=== PATIENT | female | born 1990 | race American Indian/Alaskan Native ===

== ENCOUNTER 2016-09-27 12:58 | Inpatient (IN) | payer MEDICAID ==
[2016-09-27] MEDS ORDERED: ePHEDrine SULFATE IV PRN (14:22)
[2016-09-27] MEDS ORDERED: XYLOCAINE 2% INFILTRATI ONE (14:22)
[2016-09-27] MEDS ORDERED: BRETHINE IVP PRN (14:22)
[2016-09-27] MEDS ORDERED: MINERAL OIL PO PRN (14:22)
[2016-09-27] MEDS ORDERED: BRETHINE SUB-Q PRN (14:22)
--- NOTE | 2016-09-27 14:42 | History and Physical Report ---
History of Present Illness Date of examination: 09/27/16 Date of admission: 09/27/16 13:49 History of present illness: 26 yo LMP EDC 10/12/16 @ 37.6 weeks gestation, presented to triage 7cm. Currently 9100/0 station with AROM-clear fluid at 1430. First trimester entry into care at 6 weeks. course complicated by anemia with iron BID and hemorrhage of anterior placenta on 05/05/16 U/S. Past History Past Medical History: other (ectopic) Past Surgical History: other (ectopic) Social history: no significant social history, single - Obstetrical History Expected Date of Delivery: 10/12/16 Actual Gestation: 37 Week(s) 6 Day(s) : 3 Para: 1 Hx # Term Pregnancies: 1 Number of Living Children: 1 Medications and Allergies Allergies Allergy/AdvReac Type Severity Reaction Status Date / Time hydrocodone [Hydrocodone] Allergy Hallucinati Verified 03/17/13 00:14 on latex Allergy Rash Verified 03/17/13 00:14 Home Medications Medication Instructions Recorded Confirmed Last Taken Type Acetaminophen/Codeine [Tylenol #3] 1 tab PO Q6H PRN #20 tab 03/17/13 10/26/14 Unknown Rx Promethazine [Phenergan] 25 mg PO Q6H PRN #20 tablet 03/17/13 10/26/14 Unknown Rx Ibuprofen [Motrin 600 MG tab] 600 mg PO Q6H PRN #30 tablet 10/27/14 Unknown Rx Active Meds: Active Medications Ephedrine Sulfate (Ephedrine Sulfate) 10 mg IV Q2M PRN PRN Reason: Hypotension Stop: 09/27/16 14:27 Lactated Ringer's (Lactated Ringers) 1,000 mls @ 125 mls/hr IV DIRECT JEAN-PAUL Oxytocin/Sodium Chloride (Pitocin/Ns 20 Unit/1000ml Drip) 20 units in 1,000 mls @ 125 mls/hr IV DIRECT JEAN-PAUL Oxytocin/Sodium Chloride (Pitocin/Ns 30 Unit/500ml) 30 units in 500 mls @ 1 mls /hr IV TITR JEAN-PAUL; 1 MILLIUNITS/MIN PRN Reason: Protocol Lidocaine (Xylocaine 2%) 20 ml INFILTRATI ONCE ONE Stop: 09/27/16 14:23 Mineral Oil (Mineral Oil) 30 ml PO QHS PRN PRN Reason: Constipation Terbutaline Sulfate (Brethine) 0.25 mg SUB-Q ONCE PRN PRN Reason: Hyperstimulation/Hypertonicity Stop: 09/27/16 14:23 Terbutaline Sulfate (Brethine) 0.25 mg IVP ONCE PRN PRN Reason: Hyperstimulation/Hypertonicity Stop: 09/27/16 14:23 Review of Systems All systems: negative Genitourinary: deferred, normal appearance, contractions, no vaginal bleeding, no vaginal discharge, no genital sores - Vital Signs Vital signs: Vital Signs Pulse BP 88 126/79 09/27/16 13:35 09/27/16 13:35 Temp Pulse Resp BP Pulse Ox 105 H 126/79 99 09/27/16 14:27 09/27/16 13:35 09/27/16 14:27 - Physical Exam Breasts: Positive: deferred Cardiovascular: Regular rate Lungs: Positive: Normal air movement Abdomen: Positive: normal appearance - Obstetrical FHR: category 1 Uterine Contraction Monitor Mode: External Cervical Dilatation: 9 Cervical Effacement Percentage: 100 station: -1 Uterine Contraction Frequency (min): 2 Uterine Contraction Duration: 60-70 Uterine Contraction Pattern: Regular Uterine Tone Measurement Phase: Resting Uterine Contraction Intensity: Strong/Firm Results All other labs normal. Assessment and Plan A: IUP at term Transitional Labor P: AROM-clear fluid Anticipate
--- NOTE | 2016-09-27 14:47 | Procedure Note ---
OB Delivery Note - Delivery Date of Delivery: 09/27/16 (6-1oz male 1506 Male ) Surgeon: ALBERTA CORREA Estimated blood loss: <100cc - Vaginal Delivery presentation: vertex Delivery position: OA Delivery induction: none Delivery augmentation: rupture of membranes Delivery monitor: external FHT, external uterine Route of delivery: Delivery placenta: spontaneous Delivery cord: 3 umbilical vessels Episiotomy: none Delivery laceration: vaginal side wall (Not bleeding, not repaired) Anesthesia: none - A at 1 minute: 8 at 5 minutes: 9 Gender: Male (progressed rapidly to of male infant. Spont. placenta , bleeding scant. Pitocin infusing. sidewall laceration, not bleeding, not repaired. EBL 100cc)
[2016-09-27] MEDS ORDERED: LACTATED RINGERS 1,000 ML IV SCH (15:00)
[2016-09-27] MEDS ORDERED: PITOCin/NS 30 UNIT/500ML 30 UNITS/500 ML BAG IV SCH (15:00)
[2016-09-27] MEDS ORDERED: PITOCin/NS 20 UNIT/1000ML DRIP 20 UNITS/1,000 ML BAG IV SCH (15:00)
[2016-09-27] MEDS ORDERED: MILK OF MAGNESIA PO PRN (15:25)
[2016-09-27] MEDS ORDERED: TUCKS PAD TP PRN (15:25)
[2016-09-27] MEDS ORDERED: DULCOLAX PR PRN (15:25)
[2016-09-27] MEDS ORDERED: PHENERGAN PR PRN (15:25)
[2016-09-27] MEDS ORDERED: ZOFRAN IV PRN (15:25)
[2016-09-27] MEDS ORDERED: LANSINOH TP PRN (15:25)
[2016-09-27] MEDS ORDERED: DERMOPLAST TP PRN (15:25)
[2016-09-27] MEDS ORDERED: TYLENOL PO PRN (15:25)
[2016-09-27] MEDS ORDERED: BENADRYL PO PRN (15:25)
[2016-09-27] MEDS ORDERED: SODIUM CHLORIDE FLUSH SYRINGE 10 ML IV NR (16:00)
[2016-09-27 16:22] LABS: Hemoglobin 9.6 gm/dl (10.1-14.3); Mean Corpuscular HGB Conc 32 % (30-34); Mean Corpuscular Hemoglobin 26 pg (28-32); Mean Corpuscular Volume 82 fl (79-97); Platelet Count 315 K/mm3 (140-440); Red Blood Count 3.67 M/mm3 (3.65-5.03); Red Cell Distribution Width 14.6 % (13.2-15.2); White Blood Count 9.7 K/mm3 (4.5-11.0)
[2016-09-27] MEDS: MOTRIN PO SCH (22:25)
[2016-09-28 04:01] LABS: Hematocrit 26.1 % (30.3-42.9); Hemoglobin 8.4 gm/dl (10.1-14.3)
[2016-09-28] MEDS: MOTRIN PO SCH ×2 (04:05→12:00)
--- NOTE | 2016-09-28 08:03 | Progress Note ---
Assessment and Plan - Patient Problems (1) Active labor at term Current Visit: No Status: Acute Plan to address problem: doing well routine Subjective - Subjective Date of service: 09/28/16 Interval history: Patient without complaints. Breast feeding well. Pain well controlled Patient reports: appetite normal, voiding normally, pain well controlled : doing well, nursing well Objective - Vital Signs Latest vital signs: Vital Signs Temp Pulse Pulse Resp BP BP Pulse Ox 09/28/16 00:05 98.3 F 95 H 20 110/69 09/27/16 20:18 98.5 F 88 20 116/73 09/27/16 17:30 98.1 F 82 18 117/75 09/27/16 16:25 77 120/76 09/27/16 16:10 75 118/75 09/27/16 15:56 84 128/77 09/27/16 15:40 90 120/74 09/27/16 15:26 87 124/75 09/27/16 15:02 115 H 89 09/27/16 14:57 103 H 99 09/27/16 14:56 85 85 09/27/16 14:52 98 H 98 09/27/16 14:51 82 88 09/27/16 14:47 102 H 99 09/27/16 14:42 99 H 99 09/27/16 14:37 104 H 98 09/27/16 14:32 105 H 99 09/27/16 14:27 105 H 99 09/27/16 14:22 98 H 98 09/27/16 14:17 101 H 99 09/27/16 14:12 102 H 99 09/27/16 14:07 98 H 100 09/27/16 14:03 106 H 91 09/27/16 14:02 93 H 95 09/27/16 13:35 88 126/79 Intake and Output 09/27/16 09/28/16 09/28/16 22:59 06:59 14:59 Intake Total 240 360 Balance 240 360 Intake: Oral 240 Intake, Free Water 360 Other: Total, Intake Amount 240 # Voids Void 4 Estimated Blood Loss 150 - Exam Abdomen: Present: normal appearance Uterus: Present: normal - Labs Labs: Abnormal lab results 09/27/16 09/27/16 09/28/16 Range/Units 16:00 16:00 03:33 Hgb 9.6 L 8.4 L (10.1-14.3) gm/dl Hct 30.0 L 26.1 L (30.3-42.9) % MCH 26 L (28-32) pg Crossmatch See Detail
--- NOTE | 2016-09-28 08:04 | Discharge Summary ---
Providers - Providers Date of Admission: 09/27/16 13:49 Date of discharge: 09/28/16 Attending physician: LONG CERVANTES MD Primary care physician: LONG CERVANTES MD Hospitalization Reason for admission: active labor Delivery: Discharge diagnosis: IUP at term delivered [place] baby: male Hospital course: Admitted in active labor. . Routine Condition at discharge: Good Disposition: DISCHARGED TO HOME OR SELFCARE - Discharge Diagnoses (1) Active labor at term Status: Acute Plan - Discharge Medications Prescriptions: Ferrous Sulfate [Feosol 325 MG tab] 325 mg PO BID #60 tablet Ibuprofen [Motrin] 800 mg PO Q8HR PRN #60 tablet PRN Reason: Pain - Provider Discharge Summary Activity: no sex for 6 weeks, no heavy lifting 4 weeks, no strenuous exercise Diet: routine Instructions: routine Additional instructions: [] Smoking cessation referral if applicable(refer to patient education folder for contact #) [] Refer to [facility]'s [facility] Booklet Call your doctor immediately for: * Fever > 100.5 * Heavy vaginal bleeding ( >1 pad per hour) * Severe persistent headache * Shortness of breath * Reddened, hot, painful area to leg or breast * Drainage or odor from incision. * Keep incision clean and dry at all times and follow doctor's instructions regarding bathing/showering visit in 4 weeks - Follow up plan
[2016-09-28] MEDS ORDERED: PRENATAL VITAMIN PO SCH (10:00)
[2016-09-28] MEDS ORDERED: M-M-R II VACCINE SUB-Q ONE (15:25)
[2016-09-28 18:23] VITALS: BP 100/74
== END 2016-09-28 18:30 | disposition home or self-care (01) | DRG 775 ==
LOC: TRG 12:58 → LD 13:49 → OB 17:30
PROVIDERS: ADMIT Obstetrics & Gynecology; ATTEND Obstetrics & Gynecology
PROC: 10E0XZZ Delivery of Products of Conception, External Approach (ICD-10-PCS; principal; 2016-09-27)
PROC: 10907ZC Drainage of Amniotic Fluid, Therapeutic from Products of Conception, Via Natural or Artificial Opening (ICD-10-PCS; 2016-09-27)
DX: O99.02 Anemia complicating childbirth (principal); D64.9 Anemia, unspecified; O71.4 Obstetric high vaginal laceration alone; Z3A.37 37 weeks gestation of pregnancy; Z37.0 Single live birth; Z88.8 Allergy status to other drugs, medicaments and biological substances; Z91.040 Latex allergy status; O46.8X9 Other antepartum hemorrhage, unspecified trimester
CPT/HCPCS: 36415; 85014; 85018; 85027; 86850; 86900; 86901; 86922; J2590

== ENCOUNTER 2018-08-18 08:36 | Inpatient (IN) | payer MEDICAID ==
[2018-08-18] MEDS ORDERED: PITOCin/NS 30 UNIT/500ML 30 UNITS/500 ML BAG IV SCH ×2 (10:04→15:00)
[2018-08-18] MEDS ORDERED: SUBLIMAZE IV ONE (10:05)
[2018-08-18] MEDS ORDERED: LACTATED RINGERS 1,000 ML IV SCH ×2 (11:00→15:00)
[2018-08-18 11:24] LABS: Basophils % (Auto) 0.3 % (0.0-1.8); Eosinophils # (Auto) 0.1 K/mm3 (0.0-0.4); Eosinophils % (Auto) 1.6 % (0.0-4.3); Hematocrit 34.3 % (30.3-42.9); Hemoglobin 11.1 gm/dl (10.1-14.3); Lymphocytes # (Auto) 1.4 K/mm3 (1.2-5.4); Lymphocytes % (Auto) 24.8 % (13.4-35.0); Mean Corpuscular HGB Conc 32 % (30-34); Mean Corpuscular Volume 83 fl (79-97); Monocytes # (Auto) 0.5 K/mm3 (0.0-0.8); Monocytes % (Auto) 9.2 % (0.0-7.3); Platelet Count 308 K/mm3 (140-440); Red Blood Count 4.16 M/mm3 (3.65-5.03); Red Cell Distribution Width 14.2 % (13.2-15.2)
--- NOTE | 2018-08-18 14:17 | History and Physical Report ---
History of Present Illness Date of examination: 08/18/18 Date of admission: 08/18/18 12:44 Chief complaint: leakage of fluid History of present illness: 28y/o @ 38+0 weeks presents with gross rupture of membranes and irregular uterine contractions. Patient was 3cm at presentation. Patient initiated care @ 10 weeks. course is uncomplicated. GBS negative. Past History Past Medical History: no pertinent history Past Surgical History: other (left salpingectomy) Social history: single - Obstetrical History Expected Date of Delivery: 09/01/18 Actual Gestation: 38 Week(s) 0 Day(s) : 4 Para: 2 Hx # Term Pregnancies: 2 Number of Pregnancies: 0 Spontaneous Abortions: 1 Induced : 0 Number of Living Children: 2 Medications and Allergies Allergies Allergy/AdvReac Type Severity Reaction Status Date / Time hydrocodone [Hydrocodone] Allergy Hallucinati Verified 03/17/13 00:14 on latex Allergy Rash Verified 03/17/13 00:14 Home Medications Medication Instructions Recorded Confirmed Last Taken Type Acetaminophen/Codeine [Tylenol #3] 1 tab PO Q6H PRN #20 tab 03/17/13 09/28/16 Unknown Rx Promethazine [Phenergan] 25 mg PO Q6H PRN #20 tablet 03/17/13 09/28/16 Unknown Rx Ibuprofen [Motrin 600 MG tab] 600 mg PO Q6H PRN #30 tablet 10/27/14 09/28/16 Unknown Rx Ferrous Sulfate [Feosol 325 MG tab] 325 mg PO BID #60 tablet 09/28/16 Unknown Rx Ibuprofen [Motrin] 800 mg PO Q8HR PRN #60 tablet 09/28/16 Unknown Rx Active Meds: Active Medications Lactated Ringer's (Lactated Ringers) 1,000 mls @ 125 mls/hr IV DIRECT JEAN-PAUL Oxytocin/Sodium Chloride (Pitocin/Ns 30 Unit/500ml) 30 units in 500 mls @ 4 mls/hr IV TITR JEAN-PAUL; Protocol Review of Systems All systems: negative Genitourinary: leakage of fluid, contractions - Vital Signs Vital signs: Vital Signs Pulse BP 96 H 108/71 08/18/18 09:24 08/18/18 09:24 Temp Pulse Resp BP Pulse Ox 98.4 F 100 H 14 112/77 98 08/18/18 13:43 08/18/18 14:12 08/18/18 13:43 08/18/18 13:43 08/18/18 14:12 - Physical Exam Breasts: Positive: deferred Cardiovascular: Regular rate Lungs: Positive: Clear to auscultation Abdomen: Positive: normal appearance Results Result Diagrams: 08/18/18 10:38 Abnormal lab results 08/18/18 08/18/18 Range/Units 10:38 10:38 MCH 27 L (28-32) pg [place] % (Auto) 9.2 H (0.0-7.3) % Crossmatch See Detail All other labs normal. Assessment and Plan - Patient Problems (1) Spontaneous rupture of membranes Current Visit: Yes Status: Acute Plan to address problem: admit to L&D and initiate pitocin (2) Active labor at term Current Visit: No Status: Acute
[2018-08-18] MEDS ORDERED: SUBLIMAZE ONE (14:27)
[2018-08-18] MEDS ORDERED: BRETHINE SUB-Q PRN (14:30)
[2018-08-18] MEDS ORDERED: XYLOCAINE 2% INFILTRATI ONE (14:30)
[2018-08-18] MEDS ORDERED: BRETHINE IVP PRN (14:30)
[2018-08-18] MEDS ORDERED: STADOL IV PRN (14:30)
[2018-08-18] MEDS ORDERED: MINERAL OIL PO PRN (14:30)
[2018-08-18] MEDS ORDERED: PITOCin/NS 20 UNIT/1000ML DRIP 20 UNITS/1,000 ML BAG IV SCH (15:00)
[2018-08-18 15:13] LABS: Hematocrit 32.4 % (30.3-42.9); Hemoglobin 10.6 gm/dl (10.1-14.3); Mean Corpuscular HGB Conc 33 % (30-34); Mean Corpuscular Volume 82 fl (79-97); Platelet Count 303 K/mm3 (140-440); Red Blood Count 3.95 M/mm3 (3.65-5.03); Red Cell Distribution Width 14.1 % (13.2-15.2)
[2018-08-18] MEDS ORDERED: NARCAN 2 MG/2 ML IV PRN (15:15)
--- NOTE | 2018-08-18 15:17 | Anesthesia Day of Surgery ---
Anesthesia Day of Surgery - Day of Surgery Patient Examined: Yes Patient H&P Reviewed: Yes Patient is NPO: Yes Beta Blockers: No Cardiac Clearance: No Pulmonary Clearance: No Andres's Test: N/A
--- NOTE | 2018-08-18 15:17 | Anesthesia Consultation ---
Anesthesia Consult and Med Hx - Airway Anesthetic Teeth Evaluation: Good ROM Head & Neck: Adequate Mental/Hyoid Distance: Adequate Mallampati Class: Class I Intubation Access Assessment: Good - Pulmonary Exam CTA: Yes - Cardiac Exam Cardiac Exam: RRR - Pre-Operative Health Status ASA Pre-Surgery Classification: ASA2 Proposed Anesthetic Plan: Epidural - Pulmonary Hx Smoking: No Hx Asthma: No COPD: No Hx Pneumonia: No - Cardiovascular System Hx Hypertension: No - Central Nervous System Hx Seizures: No Hx Psychiatric Problems: No - Endocrine Hx Renal Disease: No Hx End Stage Renal Disease: No Hx Hypothyroidism: No Hx Hyperthyroidism: No - Hematic Hx Anemia: No Hx Sickle Cell Disease: No - Other Systems Hx Alcohol Use: No
[2018-08-18] MEDS ORDERED: MARCAINE 0.25% INFILTRATI ONE (15:21)
[2018-08-18] MEDS ORDERED: LIDOCAINE 1.5%/EPI 1:200,000 INFILTRATI ONE (15:21)
[2018-08-18] MEDS ORDERED: fentaNYL-BUPIV 2 MCG/ML-0.125% 200 MCG/100 ML BAG EPIDURAL SCH (16:00)
[2018-08-18] MEDS ORDERED: TYLENOL PO PRN (16:08)
[2018-08-18] MEDS ORDERED: PHENERGAN PR PRN (16:08)
[2018-08-18] MEDS ORDERED: BENADRYL PO PRN (16:08)
[2018-08-18] MEDS ORDERED: TUCKS PAD TP PRN (16:08)
[2018-08-18] MEDS ORDERED: ZOFRAN IV PRN (16:08)
[2018-08-18] MEDS ORDERED: MILK OF MAGNESIA PO PRN (16:08)
[2018-08-18] MEDS ORDERED: NORCO 5/325 PO PRN (16:08)
[2018-08-18] MEDS ORDERED: LANSINOH TP PRN (16:08)
[2018-08-18] MEDS ORDERED: PHENERGAN PO PRN (16:08)
[2018-08-18] MEDS ORDERED: DULCOLAX PR PRN (16:08)
--- NOTE | 2018-08-18 16:08 | Procedure Note ---
OB Delivery Note - Delivery Date of Delivery: 08/18/18 Surgeon: TRE WAGNER Estimated blood loss: other (150ml) - Vaginal Delivery presentation: vertex Delivery position: OA Delivery augmentation: pitocin Delivery monitor: external FHT Route of delivery: Delivery placenta: spontaneous Delivery cord: nuchal cord Episiotomy: none Delivery laceration: none Anesthesia: epidural Delivery comments: Patient progressed to C/C/+2 and pushed to deliver a liveborn female with apgars of 9/9 and weight weight of 6lbs 1oz. After delivery of the head, a tight nuchal cord was surgically reduced. The shoulders delivered easily and the infant was placed on the warmer. The placenta delivered spontaneously intact with a 3VC. No lacerations were noted. EBL 150ml - Infant A at 1 minute: 9 at 5 minutes: 9 Infant Gender: Female (weight 6lbs 1oz)
--- NOTE | 2018-08-18 16:08 | Post Anesthesia Evaluation ---
- Post Anesthesia Evaluation Patient Participated: Yes Airway Patent: Yes Stable Respiratory Function: Yes Nausea/Vomiting: No Temp > 96.8F: Yes Pain Manageable: Yes Adequeate Hydration: Yes Anesthesia Complications: No Block Receding Appropriately: Yes Patient on Ventilator: No
[2018-08-18] MEDS ORDERED: SODIUM CHLORIDE FLUSH SYRINGE 10 ML IV NR (17:00)
[2018-08-19] MEDS: IBUPROFEN PO SCH ×4 (00:56→23:40)
[2018-08-19 04:41] LABS: Hematocrit 31.6 % (30.3-42.9); Hemoglobin 10.2 gm/dl (10.1-14.3)
--- NOTE | 2018-08-19 12:35 | Progress Note ---
Assessment and Plan PPD 1 s/p . Doing well. Patient would like to be discharged on today if possible. Subjective - Subjective Date of service: 08/19/18 Patient reports: appetite normal, voiding normally, pain well controlled, ambulating normally : doing well Objective - Vital Signs Latest vital signs: Vital Signs Temp Pulse Resp BP BP Pulse Ox 08/19/18 06:47 18 08/19/18 04:10 98.7 F 71 18 102/64 08/19/18 01:56 18 08/19/18 01:20 98.6 F 66 18 117/78 08/19/18 00:56 18 08/18/18 19:30 98.6 F 66 18 114/74 08/18/18 18:21 97.3 F L 81 18 109/76 08/18/18 17:33 86 110/70 08/18/18 17:18 72 119/72 08/18/18 17:04 72 120/67 08/18/18 16:48 100 H 110/62 08/18/18 16:33 82 112/63 08/18/18 16:18 97 H 120/69 08/18/18 16:04 91 H 117/66 08/18/18 15:27 120 H 141/83 08/18/18 15:12 108 H 99 08/18/18 15:07 104 H 98 08/18/18 15:02 104 H 99 08/18/18 14:57 106 H 99 08/18/18 14:52 91 H 98 08/18/18 14:47 92 H 97 08/18/18 14:42 84 96 08/18/18 14:37 100 H 97 08/18/18 14:32 101 H 97 08/18/18 14:27 82 99 08/18/18 14:22 96 H 99 08/18/18 14:17 101 H 99 08/18/18 14:12 100 H 98 08/18/18 14:07 92 H 98 08/18/18 14:02 98 H 100 08/18/18 13:57 101 H 100 08/18/18 13:52 92 H 100 08/18/18 13:47 101 H 100 08/18/18 13:43 98.4 F 92 H 14 112/77 112/77 08/18/18 13:42 108 H 99 08/18/18 13:37 100 H 99 08/18/18 13:32 106 H 99 08/18/18 13:27 98 H 100 08/18/18 13:22 85 100 08/18/18 13:17 86 100 Intake and Output 08/18/18 08/19/18 08/19/18 22:59 06:59 14:59 Output Total 1600 600 Balance -1600 -600 Output: Urine 1600 600 Void 1600 600 Other: Total, Output Amount 900 600 # Voids Void 1 1 Estimated Blood Loss 150 - Exam Breasts: Present: deferred Cardiovascular: Present: Regular rate, Normal S1, Normal S2 Lungs: Present: Clear to auscultation, Normal air movement Abdomen: Present: normal appearance, soft Vulva: both: normal Uterus: Present: normal, firm Extremities: Present: normal Deep Tendon Reflex Grade: Normal +2 - Labs Labs: Abnormal lab results 08/18/18 Range/Units 14:56 MCH 27 L (28-32) pg
--- NOTE | 2018-08-19 12:39 | Discharge Summary ---
Providers - Providers Date of Admission: 08/18/18 12:44 Date of discharge: 08/19/18 Attending physician: TRE WAGNER Primary care physician: TRE WAGNER Hospitalization Reason for admission: active labor Delivery: Episiotomy: none Laceration: none complications: none Discharge diagnosis: IUP at term delivered [place] baby: female Condition at discharge: Good Disposition: DC-01 TO HOME OR SELFCARE Plan - Discharge Medications Prescriptions: Ferrous Sulfate [Feosol 325 MG tab] 325 mg PO BID #60 tablet Ibuprofen [Motrin 600 MG tab] 600 mg PO Q6H #30 tablet - Provider Discharge Summary Activity: routine, no sex for 6 weeks, no heavy lifting 4 weeks, no strenuous exercise Diet: routine Instructions: routine Additional instructions: [] Smoking cessation referral if applicable(refer to patient education folder for contact #) [] Refer to [facility] Booklet Call your doctor immediately for: * Fever > 100.5 * Heavy vaginal bleeding ( >1 pad per hour) * Severe persistent headache * Shortness of breath * Reddened, hot, painful area to leg or breast * Drainage or odor from incision. * Keep incision clean and dry at all times and follow doctor's instructions regarding bathing/showering - Follow up plan Follow up: TRE WAGNER MD [Primary Care Provider] - 6 Weeks
[2018-08-20] MEDS: IBUPROFEN PO SCH ×2 (05:31→13:23)
[2018-08-20 17:41] VITALS: BP 112/83
== END 2018-08-20 18:16 | disposition home or self-care (01) | DRG 775 ==
LOC: TRG 08:36 → LD 12:44 → OB 18:46
PROVIDERS: ADMIT Obstetrics & Gynecology; ATTEND Obstetrics & Gynecology
PROC: 10E0XZZ Delivery of Products of Conception, External Approach (ICD-10-PCS; principal; 2018-08-19)
PROC: 3E0R3BZ Introduction of Anesthetic Agent into Spinal Canal, Percutaneous Approach (ICD-10-PCS; 2018-08-19)
PROC: 00HU33Z Insertion of Infusion Device into Spinal Canal, Percutaneous Approach (ICD-10-PCS; 2018-08-19)
DX: O69.81X0 Labor and delivery complicated by cord around neck, without compression, not applicable or unspecified (principal); Z37.0 Single live birth; Z88.8 Allergy status to other drugs, medicaments and biological substances; Z3A.38 38 weeks gestation of pregnancy
CPT/HCPCS: 36415; 85014; 85018; 85025; 85027; 86592; 86850; 86900; 86901; 86922; G0378; A6250; J2590; J3010; J7120

== ENCOUNTER 2021-03-13 14:22 | Outpatient (CLI) | payer MEDICAID ==
[2021-03-13 15:33] VITALS: BP 98/64
--- NOTE | 2021-03-13 17:02 | Ultrasound Report ---
Note: Please see concurrent ultrasound for further details of this study. Signer Name: Brendan Roth MD Signed: 03/13/2021 4:57 PM Workstation Name: [id number]
--- NOTE | 2021-03-13 17:03 | Ultrasound Report ---
ULTRASOUND BIOPHYSICAL PROFILE INDICATION / CLINICAL INFORMATION: DECREASED MOVEMENT. COMPARISON: None available. FINDINGS: BREATHING MOVEMENT = 2 GROSS BODY MOVEMENT = 2 TONE = 2 QUALITATIVE AMNIOTIC FLUID VOLUME = 2 TOTAL BIOPHYSICAL SCORE = 8/8 AMNIOTIC FLUID INDEX (cm) = 9.7 PRESENTATION: Cephalic. HEART RATE (beats per minute): 151-160 IMPRESSION: 1. No significant abnormality. 2. biophysical profile = 8/8 3. JAY JAY is within normal limits, measuring 9.7 cm. Signer Name: Brendan Roth MD Signed: 03/13/2021 4:59 PM Workstation Name: [id number]
[2021-03-13] MEDS ORDERED: LACTATED RINGERS 500 ML IV ONE (19:00)
== END 2021-03-13 18:35 | disposition home or self-care (01) ==
LOC: TRG 14:22 → APU 14:27 → TRG 18:35
PROVIDERS: ATTEND Obstetrics & Gynecology
DX: Z34.93 Encounter for supervision of normal pregnancy, unspecified, third trimester (principal); Z3A.34 34 weeks gestation of pregnancy
CPT/HCPCS: 59025; 76815; 76819

== ENCOUNTER 2021-04-09 08:39 | Inpatient (IN) | payer MEDICAID ==
[2021-04-09] MEDS ORDERED: OXYTOCIN 10 UNIT/1 ML INJ IM PRN (08:49)
[2021-04-09] MEDS ORDERED: LOPERAMIDE 2 MG CAP PO PRN (08:49)
[2021-04-09] MEDS ORDERED: CARBOPROST TROMETHAMINE 250 MCG/1 ML INJ IM PRN (08:49)
[2021-04-09] MEDS ORDERED: LIDOCAINE (2%) 20 MG/1 ML VIAL 20 ML MDV INFILTRATI NR (08:49)
[2021-04-09] MEDS ORDERED: METHYLERGONOVINE MALEATE 0.2 MG/ML VIAL IM PRN (08:49)
[2021-04-09] MEDS ORDERED: TERBUTALINE 1 MG/1 ML INJ SUB-Q PRN (08:49)
[2021-04-09] MEDS ORDERED: OXYTOCIN DRIP 30 UNITS/500 ML BAG IV SCH (09:00)
[2021-04-09] MEDS ORDERED: LACTATED RINGERS 1,000 ML IV SCH (09:00)
[2021-04-09 09:51] LABS: Hematocrit 36.3 % (30.3-42.9); Hemoglobin 11.8 gm/dl (10.1-14.3); Mean Corpuscular HGB Conc 33 % (30-34); Mean Corpuscular Volume 83 fl (79-97); Platelet Count 289 K/mm3 (140-440); Red Blood Count 4.39 M/mm3 (3.65-5.03); Red Cell Distribution Width 14.2 % (13.2-15.2)
[2021-04-09] MEDS ORDERED: BUTORPHANOL 2 MG/1 ML INJ IV PRN (10:00)
[2021-04-09] MEDS ORDERED: ACETAMINOPHEN 325 MG TAB PO PRN (10:00)
[2021-04-09] MEDS ORDERED: ePHEDrine SULFATE 50 MG/1 ML INJ IV PRN (10:00)
[2021-04-09] MEDS ORDERED: ONDANSETRON 4 MG/2 ML INJ IV PRN (10:00)
[2021-04-09] MEDS ORDERED: NALOXONE 0.4 MG/1 ML INJ IV PRN (10:00)
[2021-04-09] MEDS ORDERED: fentaNYL 100 MCG/2 ML INJ IV PRN (10:00)
[2021-04-09] MEDS ORDERED: miSOPROStol 200 MCG TAB PR PRN (10:00)
[2021-04-09] MEDS: OXYTOCIN DRIP 30 UNITS/500 ML BAG IV SCH ×5 (10:47→15:36)
--- NOTE | 2021-04-09 11:27 | History and Physical Report ---
History of Present Illness Date of examination: 04/09/21 Date of admission: 04/09/21 08:40 Chief complaint: Induction of labor secondary to IUGR History of present illness: 30 yo, @ 38.2 wks, initiated care with [place] [facility] at 10.3 wks gestation. Her has been complicated by IUGR, UTI, silent alpha thalassemia carrier and suspected atrial septal anuerysm. Presents to [facility] for IOL secondary to IUGR. Reports +FM. Denies VB or LOF. Labs: O+, antibody negative; rubella immune; HBsAg negative; HIV negative; HSV2 negative, Hep C negative, GC/Chlamydia/Trich negative; MSAFP/Multiple markers negative; 1 hr gtt 113; PAP smear normal; GBS negative. Past History Past Medical History: other (Blood transfusion) Past Surgical History: other (Left salpingectomy - 2012) Family/Genetic History: cancer, other (Sickle cell disease) Social history: single, lives with family, smoking (former), full code. denies: alcohol abuse, prescription drug abuse, IV drug use - Obstetrical History Expected Date of Delivery: 04/21/21 Actual Gestation: 38 Week(s) 2 Day(s) : 5 Para: 3 Hx # Term Pregnancies: 3 Number of Pregnancies: 0 Spontaneous Abortions: 1 Induced : 0 Number of Living Children: 3 #1 Gender: Female year: 2,[birth year] Birthweight: 2.438 kg Method of Delivery: Vaginal Gestational age at delivery: 39 Complications: none #2 Infant Gender: Male year: 2,[birth year] Birthweight: 2.75 kg Method of Delivery: Vaginal Gestational age at delivery: 38 Complications: none #3 Gender: Female year: 2,[birth year] Birthweight: 2.722 kg Method of Delivery: Vaginal Gestational age at delivery: 38 Complications: none Medications and Allergies Allergies Allergy/AdvReac Type Severity Reaction Status Date / Time hydrocodone [Hydrocodone] Allergy Hallucinati Verified 03/17/13 00:14 on latex Allergy Rash Verified 03/17/13 00:14 Home Medications Medication Instructions Recorded Confirmed Last Taken Type Acetaminophen/Codeine [Tylenol #3] 1 tab PO Q6H PRN #20 tab 03/17/13 09/28/16 Unknown Rx Promethazine [Phenergan] 25 mg PO Q6H PRN #20 tablet 03/17/13 09/28/16 Unknown Rx Ibuprofen [Motrin 600 MG tab] 600 mg PO Q6H PRN #30 tablet 10/27/14 09/28/16 Unknown Rx Ibuprofen [Motrin] 800 mg PO Q8HR PRN #60 tablet 09/28/16 Unknown Rx Ferrous Sulfate [Feosol 325 MG tab] 325 mg PO BID #60 tablet 08/19/18 Unknown Rx Ibuprofen [Motrin 600 MG tab] 600 mg PO Q6H #30 tablet 08/19/18 Unknown Rx Active Meds: Active Medications Acetaminophen (Acetaminophen 325 Mg Tab) 650 mg PO Q4H PRN PRN Reason: Pain, Mild (1-3) Butorphanol Tartrate (Butorphanol 2 Mg/1 Ml Inj) 1 mg IV Q2H PRN PRN Reason: Pain, Moderate(4-6) LABOR PAIN Carboprost Tromethamine (Carboprost Tromethamine 250 Mcg/1 Ml Inj) 250 mcg IM ONCE PRN PRN Reason: Uterine Bleeding Stop: 04/10/21 20:00 Ephedrine Sulfate (Ephedrine Sulfate 50 Mg/1 Ml Inj) 10 mg IV Q2M PRN PRN Reason: Hypotension Fentanyl (Fentanyl 100 Mcg/2 Ml Inj) 100 mcg IV Q2H PRN PRN Reason: Pain,Severe (7-10) LABOR PAIN Oxytocin/Sodium Chloride (Pitocin/Ns 30 Unit/500ml) 30 units in 500 mls @ 2 mls/hr IV TITR JEAN-PAUL; Protocol Last Admin: 04/09/21 10:47 Dose: 2 ml/hr, 2 mls/hr Documented by: Lactated Ringer's (Lactated Ringers) 1,000 mls @ 125 mls/hr IV DIRECT JEAN-PAUL Last Admin: 04/09/21 10:46 Dose: 125 mls/hr Documented by: Oxytocin/Sodium Chloride (Pitocin/Ns 30 Unit/500ml) 30 units in 500 mls @ 40 mls/hr IV TITR JEAN-PAUL; Protocol Lidocaine (Lidocaine (2%) 20 Mg/1 Ml Vial 20 Ml Mdv) 20 ml INFILTRATI ONCE NR Stop: 04/09/21 13:00 Loperamide HCl (Loperamide 2 Mg Cap) 2 mg PO ONCE PRN PRN Reason: give with Hemabate Stop: 04/10/21 20:00 Methylergonovine Maleate (Methylergonovine Maleate 0.2 Mg/Ml Vial) 0.2 mg IM ONCE PRN PRN Reason: Uterine Bleeding Stop: 04/10/21 08:48 Mineral Oil (Mineral Oil 30 Ml Oral Liqd) 30 ml PO QHS PRN PRN Reason: Constipation Misoprostol (Misoprostol 200 Mcg Tab) 800 mcg KS ONCE PRN PRN Reason: Uterine Bleeding Stop: 04/09/21 20:00 Naloxone HCl (Naloxone 0.4 Mg/1 Ml Inj) 0.1 mg IV Q2MIN PRN PRN Reason: Res Rate </= 8 or 02 SAT < 92% Ondansetron HCl (Ondansetron 4 Mg/2 Ml Inj) 4 mg IV Q8H PRN PRN Reason: Nausea And Vomiting Oxytocin (Oxytocin 10 Unit/1 Ml Inj) 10 unit IM ONCE PRN PRN Reason: Uterine Bleeding Stop: 04/10/21 20:00 Terbutaline Sulfate (Terbutaline 1 Mg/1 Ml Inj) 0.25 mg SUB-Q ONCE PRN PRN Reason: Hyperstimulation/Hypertonicity Stop: 04/10/21 08:48 Review of Systems All systems: negative - Vital Signs Vital signs: Vital Signs Pulse BP 100 H 110/79 04/09/21 09:19 04/09/21 09:19 Temp Pulse Resp BP Pulse Ox 98.3 F 95 H 16 110/79 98 04/09/21 09:56 04/09/21 11:25 04/09/21 09:56 04/09/21 09:56 04/09/21 11:25 - Physical Exam Breasts: Positive: normal Cardiovascular: Normal S1 Lungs: Positive: Normal air movement Abdomen: Positive: other (gravid) Uterus: Positive: enlarged (S<D) Extremities: Positive: normal Deep Tendon Reflex Grade: Normal +2 - Obstetrical FHR: category 1 Cervical Dilatation: 2 (per RN) Cervical Effacement Percentage: 50 Uterine Contraction Frequency (min): -2 Uterine Contraction Pattern: Absent Uterine Tone Measurement Phase: Resting Results Result Diagrams: 04/09/21 09:25 Abnormal lab results 04/09/21 Range/Units 09:25 MCH 27 L (28-32) pg All other labs normal. Assessment and Plan - Patient Problems (1) IUGR (intrauterine growth restriction) Current Visit: Yes Status: Acute Plan to address problem: Admit to [facility] for IOL Initiate Pitocin titration as tolerated Pain meds as desired per orders Anticipate (2) Alpha thalassemia silent carrier Current Visit: Yes Status: Acute
--- NOTE | 2021-04-09 17:10 | Progress Note ---
Assessment and Plan - Patient Problems (1) IUGR (intrauterine growth restriction) Current Visit: Yes Status: Acute Plan to address problem: SROM @ 1705, clear fluids Continue Pitocin titration as tolerated Pain meds as desired per orders Anticipate (2) Alpha thalassemia silent carrier Current Visit: Yes Status: Acute Subjective - Subjective Date of service: 04/09/21 Principal diagnosis: IOL secondary to IUGR Interval history: 30 yo, @ 38.2 wks, initiated care with [facility] at 10.3 wks gestation. Her has been complicated by IUGR, UTI, silent alpha thalassemia carrier and suspected atrial septal anuerysm. Presents to [facility] for IOL secondary to IUGR. Reports +FM. Denies VB or LOF. Labs: O+, antibody negative; rubella immune; HBsAg negative; HIV negative; HSV2 negative, Hep C negative, GC/Chlamydia/Trich negative; MSAFP/Multiple markers negative; 1 hr gtt 113; PAP smear normal; GBS negative. Patient reports: movement normal, contractions ("They are starting to hurt more"), no new complaints, no loss of fluid, no vaginal bleeding Objective - Vital Signs Vital Signs: Vital Signs - 12hr 04/09/21 04/09/21 04/09/21 09:19 09:55 09:56 Temperature 98.3 F Pulse Rate 100 H 105 H 102 H Respiratory 16 Rate Blood Pressure 110/79 Blood Pressure 110/79 [Right] O2 Sat by Pulse 97 Oximetry O2 Sat by Pulse Oximetry [ Bilateral] 04/09/21 04/09/21 04/09/21 10:00 10:05 10:10 Temperature Pulse Rate 101 H 98 H 94 H Respiratory Rate Blood Pressure Blood Pressure [Right] O2 Sat by Pulse 96 96 96 Oximetry O2 Sat by Pulse Oximetry [ Bilateral] 04/09/21 04/09/21 04/09/21 10:15 10:20 10:25 Temperature Pulse Rate 99 H 103 H 93 H Respiratory Rate Blood Pressure Blood Pressure [Right] O2 Sat by Pulse 98 96 96 Oximetry O2 Sat by Pulse Oximetry [ Bilateral] 04/09/21 04/09/21 04/09/21 10:30 10:35 10:40 Temperature Pulse Rate 100 H 89 99 H Respiratory Rate Blood Pressure Blood Pressure [Right] O2 Sat by Pulse 99 97 97 Oximetry O2 Sat by Pulse Oximetry [ Bilateral] 04/09/21 04/09/21 04/09/21 10:45 10:50 10:55 Temperature Pulse Rate 94 H 96 H 97 H Respiratory Rate Blood Pressure Blood Pressure [Right] O2 Sat by Pulse 96 96 96 Oximetry O2 Sat by Pulse Oximetry [ Bilateral] 04/09/21 04/09/21 04/09/21 11:00 11:05 11:18 Temperature Pulse Rate 100 H 89 Respiratory Rate Blood Pressure Blood Pressure [Right] O2 Sat by Pulse 95 97 Oximetry O2 Sat by Pulse 100 Oximetry [ Bilateral] 04/09/21 04/09/21 04/09/21 11:20 11:25 11:30 Temperature Pulse Rate 99 H 95 H 90 Respiratory Rate Blood Pressure Blood Pressure [Right] O2 Sat by Pulse 100 98 98 Oximetry O2 Sat by Pulse Oximetry [ Bilateral] 04/09/21 04/09/21 04/09/21 11:35 11:40 11:45 Temperature Pulse Rate 89 91 H 94 H Respiratory Rate Blood Pressure Blood Pressure [Right] O2 Sat by Pulse 97 97 98 Oximetry O2 Sat by Pulse Oximetry [ Bilateral] 04/09/21 04/09/21 04/09/21 11:50 11:55 12:00 Temperature Pulse Rate 86 92 H 97 H Respiratory Rate Blood Pressure Blood Pressure [Right] O2 Sat by Pulse 97 96 98 Oximetry O2 Sat by Pulse Oximetry [ Bilateral] 04/09/21 04/09/21 04/09/21 12:05 12:10 12:15 Temperature Pulse Rate 80 93 H Respiratory Rate Blood Pressure Blood Pressure [Right] O2 Sat by Pulse 97 96 100 Oximetry O2 Sat by Pulse Oximetry [ Bilateral] 04/09/21 04/09/21 04/09/21 12:16 12:23 12:28 Temperature Pulse Rate 80 85 79 Respiratory Rate Blood Pressure Blood Pressure [Right] O2 Sat by Pulse 0 L 97 98 Oximetry O2 Sat by Pulse Oximetry [ Bilateral] 04/09/21 04/09/21 04/09/21 12:33 12:38 12:43 Temperature Pulse Rate 89 94 H 90 Respiratory Rate Blood Pressure Blood Pressure [Right] O2 Sat by Pulse 99 99 99 Oximetry O2 Sat by Pulse Oximetry [ Bilateral] 04/09/21 04/09/21 04/09/21 12:48 12:53 12:58 Temperature Pulse Rate 97 H 90 91 H Respiratory Rate Blood Pressure Blood Pressure [Right] O2 Sat by Pulse 98 98 98 Oximetry O2 Sat by Pulse Oximetry [ Bilateral] 04/09/21 04/09/21 04/09/21 13:03 13:08 13:21 Temperature Pulse Rate 95 H 87 88 Respiratory Rate Blood Pressure Blood Pressure [Right] O2 Sat by Pulse 97 98 97 Oximetry O2 Sat by Pulse Oximetry [ Bilateral] 04/09/21 04/09/21 04/09/21 13:26 13:31 13:33 Temperature Pulse Rate 95 H 82 79 Respiratory Rate Blood Pressure Blood Pressure [Right] O2 Sat by Pulse 98 98 86 Oximetry O2 Sat by Pulse Oximetry [ Bilateral] 04/09/21 04/09/21 04/09/21 13:36 13:41 13:46 Temperature Pulse Rate 90 87 82 Respiratory Rate Blood Pressure Blood Pressure [Right] O2 Sat by Pulse 97 97 99 Oximetry O2 Sat by Pulse Oximetry [ Bilateral] 04/09/21 04/09/21 04/09/21 13:51 13:56 14:01 Temperature Pulse Rate 89 76 75 Respiratory Rate Blood Pressure Blood Pressure [Right] O2 Sat by Pulse 97 96 98 Oximetry O2 Sat by Pulse Oximetry [ Bilateral] 04/09/21 04/09/21 04/09/21 14:06 14:11 14:13 Temperature 98.8 F Pulse Rate 107 H 99 H 108 H Respiratory 16 Rate Blood Pressure 108/72 Blood Pressure 108/72 [Right] O2 Sat by Pulse 97 97 Oximetry O2 Sat by Pulse Oximetry [ Bilateral] 04/09/21 04/09/21 04/09/21 14:16 14:21 14:26 Temperature Pulse Rate 93 H 100 H 83 Respiratory Rate Blood Pressure Blood Pressure [Right] O2 Sat by Pulse 98 97 96 Oximetry O2 Sat by Pulse Oximetry [ Bilateral] 04/09/21 04/09/21 04/09/21 14:31 14:36 14:41 Temperature Pulse Rate 93 H 91 H 85 Respiratory Rate Blood Pressure Blood Pressure [Right] O2 Sat by Pulse 96 97 96 Oximetry O2 Sat by Pulse Oximetry [ Bilateral] 04/09/21 04/09/21 04/09/21 14:46 14:51 14:56 Temperature Pulse Rate 93 H 88 79 Respiratory Rate Blood Pressure Blood Pressure [Right] O2 Sat by Pulse 97 98 98 Oximetry O2 Sat by Pulse Oximetry [ Bilateral] 04/09/21 04/09/21 04/09/21 15:01 15:06 15:11 Temperature Pulse Rate 88 93 H 75 Respiratory Rate Blood Pressure Blood Pressure [Right] O2 Sat by Pulse 98 97 97 Oximetry O2 Sat by Pulse Oximetry [ Bilateral] 04/09/21 04/09/21 04/09/21 15:16 16:13 16:14 Temperature Pulse Rate 82 90 82 Respiratory Rate Blood Pressure 101/65 Blood Pressure [Right] O2 Sat by Pulse 98 100 Oximetry O2 Sat by Pulse Oximetry [ Bilateral] 04/09/21 04/09/21 04/09/21 16:18 16:20 16:23 Temperature Pulse Rate 83 90 86 Respiratory Rate Blood Pressure Blood Pressure [Right] O2 Sat by Pulse 100 83 L 100 Oximetry O2 Sat by Pulse Oximetry [ Bilateral] 04/09/21 04/09/21 04/09/21 16:28 16:33 16:38 Temperature Pulse Rate 82 94 H 100 H Respiratory Rate Blood Pressure Blood Pressure [Right] O2 Sat by Pulse 100 100 99 Oximetry O2 Sat by Pulse Oximetry [ Bilateral] 04/09/21 04/09/21 04/09/21 16:43 16:48 16:56 Temperature Pulse Rate 92 H 92 H 92 H Respiratory Rate Blood Pressure Blood Pressure [Right] O2 Sat by Pulse 98 100 100 Oximetry O2 Sat by Pulse Oximetry [ Bilateral] - Exam Breasts: deferred Cardiovascular: Regular rate Uterus: Present: other (S<D) FHR: category 1 Uterine Contraction Monitor Mode: External Cervical Dilatation: 3 (per RN) Cervical Effacement Percentage: 80 (Pitocin @ 12mu/min) station: -2 Uterine Contraction Frequency (min): 2-4 Uterine Contraction Pattern: Regular Uterine Tone Measurement Phase: Resting Uterine Contraction Intensity: Mild Extremities: normal - Labs Labs: Abnormal Labs 04/09/21 09:25 MCH 27 L Laboratory Results - last 24 hr 04/09/21 04/09/21 04/09/21 09:25 09:25 Unknown WBC 6.8 RBC 4.39 Hgb 11.8 Hct 36.3 MCV 83 MCH 27 L MCHC 33 RDW 14.2 Plt Count 289 Syphilis IgG Antibody Nonreactive Coronavirus (PCR) Negative
[2021-04-09] MEDS ORDERED: LANOLIN/ZINC/DIMETHICONE (LANSINOH) 7 GM TP PRN (18:56)
[2021-04-09] MEDS ORDERED: PROMETHAZINE 25 MG TAB PO PRN (18:56)
[2021-04-09] MEDS ORDERED: diphenhydrAMINE 25 MG CAP PO PRN (18:56)
[2021-04-09] MEDS ORDERED: oxyCODONE /ACETAMINOPHEN 5-325MG TAB PO PRN (18:56)
[2021-04-09] MEDS ORDERED: WITCH HAZEL/ GLYCERIN PAD TP PRN (18:56)
[2021-04-09] MEDS ORDERED: MAGNESIUM HYDROXIDE (MOM) ORAL LIQD UDC PO PRN (18:56)
--- NOTE | 2021-04-09 19:18 | Procedure Note ---
OB Delivery Note - Delivery Date of Delivery: 04/09/21 Surgeon: BOB VALLES (CLEM) Estimated blood loss: other (QBL- 375mls) - Vaginal Delivery presentation: vertex Delivery position: OA Delivery induction: oxytocin Delivery augmentation: rupture of membranes (SROM @ 1705, clear fluids) Delivery monitor: external FHT, external uterine Route of delivery: Delivery placenta: spontaneous (1837) Delivery cord: 3 umbilical vessels Episiotomy: none Delivery laceration: none Anesthesia: intravenous Delivery comments: (attended by Raúl Hopson CNM) of viable, alert, crying female placed directly to maternal abdomen. Cord double clamped and cut after cessation of pulsation. Cord blood collected and sent to lab. Placenta spontaneously delivered, sent to pathology secondary to IUGR. Uterus firm @ U-2, hemostasis maintained. Perineum intact. Mother and baby safe stable and left in care of RN. - A at 1 minute: 8 at 5 minutes: 9 Infant Gender: Female (Weight: 2710 gms (6lbs) 18.5 inches)
[2021-04-09] MEDS ORDERED: MINERAL OIL 30 ML ORAL LIQD PO PRN (22:00)
[2021-04-09] MEDS: IBUPROFEN 600 MG TAB PO SCH (22:49)
[2021-04-10] MEDS: IBUPROFEN 600 MG TAB PO SCH ×5 (03:00→23:56)
--- NOTE | 2021-04-10 07:51 | Progress Note ---
Assessment and Plan - Patient Problems (1) IUGR (intrauterine growth restriction) Current Visit: Yes Status: Acute Plan to address problem: Patient doing well Discharge home (2) Active labor at term Current Visit: No Status: Acute Subjective - Subjective Date of service: 04/10/21 Principal diagnosis: IOL secondary to IUGR Interval history: Patient doing well. No significant complaints. Patient reports: appetite normal, voiding normally, pain well controlled Mcgrath: doing well Objective - Vital Signs Latest vital signs: Vital Signs Temp Pulse Resp BP BP BP Pulse Ox 04/09/21 22:00 97.8 F 70 18 111/68 99 04/09/21 20:58 91 H 94 04/09/21 20:56 95 H 98 04/09/21 20:53 76 119/90 04/09/21 20:51 71 98 04/09/21 20:46 77 99 04/09/21 20:41 86 98 04/09/21 20:37 91 H 117/77 94 04/09/21 20:36 84 98 04/09/21 20:31 75 97 04/09/21 20:26 74 97 04/09/21 20:22 82 118/75 04/09/21 20:21 90 96 04/09/21 20:16 68 98 04/09/21 20:11 70 98 04/09/21 20:09 98.5 F 71 16 117/75 98 04/09/21 20:07 72 117/75 04/09/21 20:06 69 98 04/09/21 20:01 77 100 04/09/21 19:56 77 100 04/09/21 19:55 103 H 94 04/09/21 19:52 80 112/66 04/09/21 19:51 93 H 73 L 04/09/21 19:50 100 H 94 04/09/21 19:46 77 98 04/09/21 19:41 79 99 04/09/21 19:37 71 111/66 04/09/21 19:36 83 98 04/09/21 19:31 76 99 04/09/21 19:26 73 99 04/09/21 19:25 77 84 04/09/21 19:23 81 108/67 04/09/21 19:21 77 100 04/09/21 19:16 91 H 98 04/09/21 19:11 81 100 04/09/21 19:07 81 116/68 04/09/21 19:06 85 99 04/09/21 19:01 71 100 04/09/21 18:56 87 100 04/09/21 18:52 83 122/64 04/09/21 18:51 82 100 04/09/21 18:46 85 100 04/09/21 18:41 84 100 04/09/21 18:38 105 H 135/75 04/09/21 18:36 98 H 99 04/09/21 18:31 95 H 99 04/09/21 18:26 118 H 97 04/09/21 18:21 119 H 97 04/09/21 18:16 108 H 98 04/09/21 18:11 113 H 100 04/09/21 18:06 115 H 99 04/09/21 18:05 110 H 88 04/09/21 18:04 16 04/09/21 18:01 104 H 100 04/09/21 17:56 98 H 100 04/09/21 17:51 84 100 04/09/21 17:46 116 H 98 04/09/21 17:41 103 H 100 04/09/21 17:36 100 H 98 04/09/21 17:31 90 98 04/09/21 17:26 78 97 04/09/21 17:24 98.9 F 16 04/09/21 17:21 77 97 04/09/21 17:16 95 H 96 04/09/21 17:11 94 H 97 04/09/21 17:06 89 98 04/09/21 17:01 106 H 100 04/09/21 16:56 92 H 100 04/09/21 16:48 92 H 100 04/09/21 16:43 92 H 98 04/09/21 16:38 100 H 99 04/09/21 16:33 94 H 100 04/09/21 16:28 82 100 04/09/21 16:23 86 100 04/09/21 16:20 90 83 L 04/09/21 16:18 83 100 04/09/21 16:14 82 101/65 04/09/21 16:13 90 100 04/09/21 15:16 82 98 04/09/21 15:11 75 97 04/09/21 15:06 93 H 97 04/09/21 15:01 88 98 04/09/21 14:56 79 98 04/09/21 14:51 88 98 04/09/21 14:46 93 H 97 04/09/21 14:41 85 96 04/09/21 14:36 91 H 97 04/09/21 14:31 93 H 96 04/09/21 14:26 83 96 04/09/21 14:21 100 H 97 04/09/21 14:16 93 H 98 04/09/21 14:13 98.8 F 108 H 16 108/72 108/72 04/09/21 14:11 99 H 97 04/09/21 14:06 107 H 97 04/09/21 14:01 75 98 04/09/21 13:56 76 96 04/09/21 13:51 89 97 04/09/21 13:46 82 99 04/09/21 13:41 87 97 04/09/21 13:36 90 97 04/09/21 13:33 79 86 04/09/21 13:31 82 98 04/09/21 13:26 95 H 98 04/09/21 13:21 88 97 04/09/21 13:08 87 98 04/09/21 13:03 95 H 97 04/09/21 12:58 91 H 98 04/09/21 12:53 90 98 04/09/21 12:48 97 H 98 04/09/21 12:43 90 99 04/09/21 12:38 94 H 99 04/09/21 12:33 89 99 04/09/21 12:28 79 98 04/09/21 12:23 85 97 04/09/21 12:16 80 0 L 04/09/21 12:15 100 04/09/21 12:10 93 H 96 04/09/21 12:05 80 97 04/09/21 12:00 97 H 98 04/09/21 11:55 92 H 96 04/09/21 11:50 86 97 04/09/21 11:45 94 H 98 04/09/21 11:40 91 H 97 04/09/21 11:35 89 97 04/09/21 11:30 90 98 04/09/21 11:25 95 H 98 04/09/21 11:20 99 H 100 04/09/21 11:18 04/09/21 11:05 89 97 04/09/21 11:00 100 H 95 04/09/21 10:55 97 H 96 04/09/21 10:50 96 H 96 04/09/21 10:45 94 H 96 04/09/21 10:40 99 H 97 04/09/21 10:35 89 97 04/09/21 10:30 100 H 99 04/09/21 10:25 93 H 96 04/09/21 10:20 103 H 96 04/09/21 10:15 99 H 98 04/09/21 10:10 94 H 96 04/09/21 10:05 98 H 96 04/09/21 10:00 101 H 96 04/09/21 09:56 98.3 F 102 H 16 110/79 04/09/21 09:55 105 H 97 04/09/21 09:19 100 H 110/79 Pulse Ox 04/09/21 22:00 99 04/09/21 20:58 04/09/21 20:56 04/09/21 20:53 04/09/21 20:51 04/09/21 20:46 04/09/21 20:41 04/09/21 20:37 04/09/21 20:36 04/09/21 20:31 04/09/21 20:26 04/09/21 20:22 04/09/21 20:21 04/09/21 20:16 04/09/21 20:11 04/09/21 20:09 04/09/21 20:07 04/09/21 20:06 04/09/21 20:01 04/09/21 19:56 04/09/21 19:55 04/09/21 19:52 04/09/21 19:51 04/09/21 19:50 04/09/21 19:46 04/09/21 19:41 04/09/21 19:37 04/09/21 19:36 04/09/21 19:31 04/09/21 19:26 04/09/21 19:25 04/09/21 19:23 04/09/21 19:21 04/09/21 19:16 04/09/21 19:11 04/09/21 19:07 04/09/21 19:06 04/09/21 19:01 04/09/21 18:56 04/09/21 18:52 04/09/21 18:51 04/09/21 18:46 04/09/21 18:41 04/09/21 18:38 04/09/21 18:36 04/09/21 18:31 04/09/21 18:26 04/09/21 18:21 04/09/21 18:16 04/09/21 18:11 04/09/21 18:06 04/09/21 18:05 04/09/21 18:04 04/09/21 18:01 04/09/21 17:56 04/09/21 17:51 04/09/21 17:46 04/09/21 17:41 04/09/21 17:36 04/09/21 17:31 04/09/21 17:26 04/09/21 17:24 04/09/21 17:21 04/09/21 17:16 04/09/21 17:11 04/09/21 17:06 04/09/21 17:01 04/09/21 16:56 04/09/21 16:48 04/09/21 16:43 04/09/21 16:38 04/09/21 16:33 04/09/21 16:28 04/09/21 16:23 04/09/21 16:20 04/09/21 16:18 04/09/21 16:14 04/09/21 16:13 04/09/21 15:16 04/09/21 15:11 04/09/21 15:06 04/09/21 15:01 04/09/21 14:56 04/09/21 14:51 04/09/21 14:46 04/09/21 14:41 04/09/21 14:36 04/09/21 14:31 04/09/21 14:26 04/09/21 14:21 04/09/21 14:16 04/09/21 14:13 04/09/21 14:11 04/09/21 14:06 04/09/21 14:01 04/09/21 13:56 04/09/21 13:51 04/09/21 13:46 04/09/21 13:41 04/09/21 13:36 04/09/21 13:33 04/09/21 13:31 04/09/21 13:26 04/09/21 13:21 04/09/21 13:08 04/09/21 13:03 04/09/21 12:58 04/09/21 12:53 04/09/21 12:48 04/09/21 12:43 04/09/21 12:38 04/09/21 12:33 04/09/21 12:28 04/09/21 12:23 04/09/21 12:16 04/09/21 12:15 04/09/21 12:10 04/09/21 12:05 04/09/21 12:00 04/09/21 11:55 04/09/21 11:50 04/09/21 11:45 04/09/21 11:40 04/09/21 11:35 04/09/21 11:30 04/09/21 11:25 04/09/21 11:20 04/09/21 11:18 100 04/09/21 11:05 04/09/21 11:00 04/09/21 10:55 04/09/21 10:50 04/09/21 10:45 04/09/21 10:40 04/09/21 10:35 04/09/21 10:30 04/09/21 10:25 04/09/21 10:20 04/09/21 10:15 04/09/21 10:10 04/09/21 10:05 04/09/21 10:00 04/09/21 09:56 04/09/21 09:55 04/09/21 09:19 Intake and Output 04/09/21 04/10/21 04/10/21 22:59 06:59 14:59 Intake Total 574.933 Output Total 750 400 Balance -175.067 -400 Intake: IV 14.933 PITOCin/NS 30 UNIT/500ML 14.933 30 units In 500 ml @ 2 mls/hr IV TITR JEAN-PAUL Rx#: [id number] Oral 560 Output: Urine 750 400 Void 750 400 Other: Total, Intake Amount 200 Total, Output Amount 350 400 Estimated Blood Loss 375 - Labs Labs: Abnormal lab results 04/09/21 Range/Units 09:25 MCH 27 L (28-32) pg
--- NOTE | 2021-04-10 07:52 | Discharge Summary ---
Providers - Providers Date of Admission: 04/09/21 08:40 Date of discharge: 04/10/21 Attending physician: SYLVAIN JERONIMO Primary care physician: SYLVAIN JERONIMO Hospitalization Reason for admission: induction of labor Delivery: Discharge diagnosis: IUP at term delivered Hospital course: Patient was admitted for intrauterine growth restriction. She had a successful vaginal delivery. course was uneventful. Condition at discharge: Good Disposition: 01 HOME / SELF CARE / HOMELESS - Discharge Diagnoses (1) IUGR (intrauterine growth restriction) Status: Acute (2) Active labor at term Status: Acute Plan - Discharge Medications Prescriptions: Ibuprofen [Motrin] 800 mg PO Q8HR PRN #30 tablet PRN Reason: Pain , Severe (7-10) - Provider Discharge Summary Activity: no sex for 6 weeks, no heavy lifting 4 weeks Diet: routine Instructions: routine Additional instructions: [] Smoking cessation referral if applicable(refer to patient education folder for contact #) [] Refer to [facility] Booklet Call your doctor immediately for: * Fever > 100.5 * Heavy vaginal bleeding ( >1 pad per hour) * Severe persistent headache * Shortness of breath * Reddened, hot, painful area to leg or breast * Schedule visit in 4 weeks - Follow up plan
[2021-04-10 09:25] LABS: Hematocrit 30.8 % (30.3-42.9)
[2021-04-10] MEDS: PRENATAL VIT27-FE FUMARATE-FOLIC ACID VIT TAB PO SCH (10:26)
[2021-04-11] MEDS: IBUPROFEN 600 MG TAB PO SCH (05:05)
[2021-04-11] MEDS: PRENATAL VIT27-FE FUMARATE-FOLIC ACID VIT TAB PO SCH (10:10)
[2021-04-11 14:01] VITALS: BP 113/85
== END 2021-04-11 14:04 | disposition home or self-care (01) | DRG 775 ==
LOC: TRG 08:39 → LD 08:40 → TRG 09:29 → OB 21:29
PROVIDERS: ADMIT Obstetrics & Gynecology; ATTEND Obstetrics & Gynecology
PROC: 10E0XZZ Delivery of Products of Conception, External Approach (ICD-10-PCS; principal; 2021-04-09)
PROC: 3E033VJ Introduction of Other Hormone into Peripheral Vein, Percutaneous Approach (ICD-10-PCS; 2021-04-09)
DX: O36.5930 Maternal care for other known or suspected poor fetal growth, third trimester, not applicable or unspecified (principal); Z3A.38 38 weeks gestation of pregnancy; Z37.0 Single live birth; Z20.822 Contact with and (suspected) exposure to COVID-19; D56.3 Thalassemia minor; O99.02 Anemia complicating childbirth; Z88.8 Allergy status to other drugs, medicaments and biological substances; Z91.040 Latex allergy status
CPT/HCPCS: 36415; 85014; 85018; 85027; 86592; 86850; 86900; 86901; 88307; G0378; J2590; J3010; J7120; U0003